=== PATIENT | female | born 1950 | race Caucasian/White ===

== ENCOUNTER 2017-09-16 21:12 | Emergency (ER) | payer MEDICARE, BC ==
[~2017-09-16] VITALS: Ht 160 cm; Wt 61.7 kg
--- NOTE | 2017-09-16 21:30 | NUR ---
BIB FAMILY, RT SIDE HEAD PAIN, DIZZINESS S/P FALL OFF ELLIPTICAL MACHINE X 1HR AGO TODAY, -KO, NAD NOTED, VSS, RESP EVEN AND UNLABORED. WAITING FOR MD TOMAS.
[2017-09-16] MEDS ORDERED: ONDANSETRON 4 MG TAB.RAPDIS SL ONE (22:00)
[2017-09-16] MEDS ORDERED: ONDANSETRON 4 MG TAB.RAPDIS ONE (22:20)
[2017-09-16 23:19] VITALS: BP 127/85
--- NOTE | 2017-09-16 23:20 | NUR ---
Patient discharged to home in stable condition. Written and verbal after care instructions given. Patient verbalizes understanding of instruction.
== END 2017-09-16 23:26 | disposition home or self-care (01) ==
LOC: ER 21:19
DX: S09.8XXA Other specified injuries of head, initial encounter (principal); I10 Essential (primary) hypertension; Z88.0 Allergy status to penicillin; Z88.1 Allergy status to other antibiotic agents; W17.89XA Other fall from one level to another, initial encounter; Y93.89 Activity, other specified; Y92.39 Other specified sports and athletic area as the place of occurrence of the external cause; Y99.8 Other external cause status
CPT/HCPCS: 70450; 99284; A4606; Q0162; Z7610